=== PATIENT | female | born 1945 | race American Indian/Alaskan Native ===

== ENCOUNTER 2016-09-24 14:04 | Outpatient (CLI) | payer MEDICARE ==
--- NOTE | 2016-09-25 07:22 | Vascular Lab Report ---
LOWER EXTREMITY ARTERIAL DUPLEX: REASON FOR EXAM: Peripheral arterial disease. COMMENTS ON THE RIGHT: Biphasic waveforms are seen proximally. Triphasic waveforms are seen distally. No significant velocity gradients are identified. No focal significant plaque is identified. Findings are consistent with normal perfusion. Findings are consistent with the ability to heal distal wounds. COMMENTS ON THE LEFT: Biphasic waveforms are seen proximally. Triphasic waveforms are seen distally. No significant velocity gradients are identified. No focal significant plaque is identified. Findings are consistent with normal perfusion. Findings are consistent with the ability to heal distal wounds. IMPRESSION: RIGHT: Essentially normal arterial flow. LEFT:Essentially normal arterial flow.
== END 2016-09-24 14:05 | disposition home or self-care (01) ==
LOC: VAS 14:04 → SPVWC 14:04 → VAS 14:05
DX: M79.604 Pain in right leg (principal); M79.605 Pain in left leg
CPT/HCPCS: 93925

== ENCOUNTER 2017-09-27 14:18 | Outpatient (CLI) | payer MEDICARE ==
--- NOTE | 2017-09-27 16:36 | XRay Report ---
FINAL REPORT EXAM: XR SPINE CERVICAL 2-3V HISTORY: CERVICALGIA TECHNIQUE: Cervical spine five views PRIORS: None. FINDINGS: Vertebral bodies demonstrate normal height and alignment. The disk spaces are within normal limits. The facet joints demonstrate normal alignment. The spinous processes are intact. Craniocervical junction is unremarkable. C1 and C2 are intact. IMPRESSION: Negative cervical spine series.
== END 2017-09-27 14:19 | disposition home or self-care (01) ==
LOC: XRAY 14:18
DX: M54.2 Cervicalgia (principal); I13.0 Hypertensive heart and chronic kidney disease with heart failure and stage 1 through stage 4 chronic kidney disease, or unspecified chronic kidney disease; E11.22 Type 2 diabetes mellitus with diabetic chronic kidney disease; N18.3 Chronic kidney disease, stage 3 (moderate)
CPT/HCPCS: 72040

== ENCOUNTER 2021-12-19 13:03 | Outpatient (CLI) | payer MEDICARE ==
--- NOTE | 2021-12-19 14:56 | XRay Report ---
XR knee BILAT 1-2V INDICATION: BILATERAL KNEE PAIN. COMPARISON: None available. FINDINGS: Previous bilateral knee arthroplasty. No appreciable periprosthetic fracture or loosening. No definit e acute findings. Signer Name: Danielito Mcguire MD Signed: 12/19/2021 2:51 PM Workstation Name: [id number]
--- NOTE | 2021-12-19 15:03 | XRay Report ---
XR tib/fib BILAT 2V INDICATION: LOWER BILATERAL LEG PAIN. COMPARISON: None available. FINDINGS: There are extensive vascular calcifications in both lower legs. There is also previous bilateral knee arthroplasty. There is no acute fracture or other acute abnormality. Signer Name: Danielito Mcguire MD Signed: 12/19/2021 2:59 PM Workstation Name: [id number]
== END 2021-12-19 13:04 | disposition home or self-care (01) ==
LOC: XRAY 13:03
PROVIDERS: ATTEND Orthopaedic Surgery
DX: M25.872 Other specified joint disorders, left ankle and foot (principal); M25.871 Other specified joint disorders, right ankle and foot; M25.561 Pain in right knee; M25.562 Pain in left knee; Z96.652 Presence of left artificial knee joint; Z96.651 Presence of right artificial knee joint